=== PATIENT | male | born 1990 | race Caucasian/White ===

== ENCOUNTER 2016-08-14 14:14 | Emergency (ER) | payer OTHER ==
[~2016-08-14] VITALS: Ht 195.6 cm; Wt 10.0 kg
[2016-08-14 14:17] VITALS: Ht 195.6 cm; Wt 10.0 kg
[2016-08-14] MEDS ORDERED: KETOROLAC 30 MG INJ IM STA (14:46)
[2016-08-14] MEDS ORDERED: HYDROCODONE/APAP (5/325) TAB PO ONE (15:00)
--- NOTE | 2016-08-14 15:38 | RADRPT ---
PROCEDURE: At the Save CLINICAL INDICATION: knee pain after injury today TECHNIQUE: AP, lateral and oblique views of the left knee were obtained. COMPARISON: None FINDINGS: There is no evidence of acute fracture or dislocation. The bony mineralization is normal. No focal bony blastic or lytic lesions. Probable small left knee joint effusion. IMPRESSION: 1. No evidence acute fracture or dislocation. 2. Probable small left knee joint effusion. RPTAT:AAJJ Physician Misty Date Time Electronically viewed and signed by Lawson Sierra Physician on 08/14/2016 15:38 BM/
[2016-08-14] MEDS ORDERED: HYDR-906 PO (15:47)
[2016-08-14] MEDS ORDERED: IBUP-1542 PO (15:47)
--- NOTE | 2016-08-14 16:06 | ERD ---
ER Documentation Chief Complaint Date/Time DATE: 08/14/16 TIME: 16:00 Chief Complaint left knee pain from sports injury today HPI 26 year old male presents emergency department for left knee pain after injury today. Patient states he was playing basketball when he tripped and fell landing on his left knee. No audible pop. Patient states he had immediate burning type pain to anterior aspect of left knee. Patient now rating pain 9/ 10. Pain is nonradiating. No calf tenderness. Patient can apply full body weight to left leg however patient has difficulty ambulate. Denies numbness or tingling. No loss of sensation. No swelling. ROS All systems reviewed and are negative except as per history of present illness. Medications Home Meds Active Scripts Hydrocodone/Acetaminophen (Randlett 5-325 Tablet) 1 Each Tablet, 1 TAB PO Q6H Y for PAIN, #7 TAB Prov:YASMIN KELLY NP 08/14/16 Ibuprofen* (Motrin*) 600 Mg Tab, 600 MG PO Q6, #15 TAB Prov:YASMIN KELLY NP 08/14/16 PMhx/Soc History of Surgery: No Anesthesia Reaction: No Hx Neurological Disorder: No Hx Respiratory Disorders: No Hx Cardiac Disorders: No Hx Psychiatric Problems: No Hx Miscellaneous Medical Probl: No Hx Alcohol Use: No Hx Substance Use: No Hx Tobacco Use: No Physical Exam Vitals Vital Signs Date Time Temp Pulse Resp B/P Pulse Ox O2 Delivery O2 Flow Rate FiO2 08/14/16 14:17 98.0 99 18 134/76 97 Physical Exam Const: Alert, oriented to person, place and time Head: Atraumatic Eyes: Normal Conjunctiva ENT: Normal External Ears, Nose and Mouth. Neck: Full range of motion..~ No meningismus. Resp: Clear to auscultation bilaterally Cardio: Regular rate and rhythm, no murmurs Abd: Soft, non tender, non distended. Normal bowel sounds Skin: No petechiae or rashes Back: No midline or flank tenderness Ext: limited flexion and extension of left knee. no swelling. no laceration or erythema. Neurovascularly intact. No loss of sensation. Neur: Awake and alert Psych: Normal Mood and Affect Results 24 hrs Current Medications Medications (Trade) Dose Ordered Sig/Terese Route PRN Reason Start Time Stop Time Status Last Admin Dose Admin Ketorolac Tromethamine (Toradol) 30 mg ONCE STAT IM 08/14/16 14:46 08/14/16 14:48 DC 08/14/16 14:59 Acetaminophen/ Hydrocodone Bitart (Randlett (5/325)) 1 tab ONCE ONCE PO 08/14/16 15:00 08/14/16 15:01 DC 08/14/16 14:59 Procedures/MDM ED COURSE: The patient was stable throughout ED course. I kept the patient and/or family informed of laboratory and diagnostic imaging results throughout the ED course. Imaging Left knee x-ray Patient: ELIZABETH RAGSDALE : 1990 Age: 26 Sex: M MR #: [id number] DOS: 08/14/16 1446 Ordering MD: YASMIN KELLY NP Location: [facility] Room/Bed: PROCEDURE: At the Save CLINICAL INDICATION: knee pain after injury today TECHNIQUE: AP, lateral and oblique views of the left knee were obtained. COMPARISON: None FINDINGS: There is no evidence of acute fracture or dislocation. The bony mineralization is normal. No focal bony blastic or lytic lesions. Probable small left knee joint effusion. IMPRESSION: 1. No evidence acute fracture or dislocation. 2. Probable small left knee joint effusion. MDM: 26-year old male presents to ED with left knee pain after injury today. Patient given Toradol and Randlett while in the ED. Patient has limited mobility to left knee. Can bear weight however has difficulty ambulating due to pain. Left knee x-ray reviewed by radiologist as no evidence of acute fracture or dislocation. Probable small left knee joint effusion. Neurovascularly intact. Knee immobilizer was applied to left lower extremity while in the ED and patient remains neurovascularly intact pre-and post splint application. Crutches were provided. Low suspicion for acute dislocation, fracture, cellulitis or compartment syndrome. Patient is appropriate for outpatient management will be given prescription for ibuprofen and Randlett. Instructed patient to follow-up with PCP or web content specialist in the next 24-48 hours for reassessment and additional management. Return to ED for any high fever, chest pain, difficulty breathing, shortness breath, wheezing, vomiting, diarrhea, abdominal pain or any new or worsening symptoms. Patient verbalizes understanding. All questions answered at discharge. Departure Diagnosis: Primary Impression: Knee pain Laterality: left Chronicity: acute Qualified Code: M25.562 - Acute pain of left knee Condition: Stable Patient Instructions: Knee Sprain Referrals: [facility] YOU HAVE RECEIVED A MEDICAL SCREENING EXAM AND THE RESULTS INDICATE THAT YOU DO NOT HAVE A CONDITION THAT REQUIRES URGENT TREATMENT IN THE EMERGENCY DEPARTMENT. FURTHER EVALUATION AND TREATMENT OF YOUR CONDITION CAN WAIT UNTIL YOU ARE SEEN IN YOUR DOCTORS OFFICE WITHIN THE NEXT 1-2 DAYS. IT IS YOUR RESPONSIBILITY TO MAKE AN APPOINTMENT FOR FOLOW-UP CARE. IF YOU HAVE A PRIMARY DOCTOR --you should call your primary doctor and schedule an appointment IF YOU DO NOT HAVE A PRIMARY DOCTOR YOU CAN CALL OUR PHYSICIAN REFERRAL HOTLINE AT IF YOU CAN NOT AFFORD TO SEE A PHYSICIAN YOU CAN CHOSE FROM THE FOLLOW[facility] [address] [facility] [address] [facility] [address] [facility] [address] [facility] [address] [facility] [address] [facility]. [facility] Urgent Care 7 a.m.- 11 p.m. Every Day of the Week NO APPOINTMENT OR AUTHORIZATION NEEDED Additional Instructions: Call your primary care doctor TOMORROW for an appointment during the next 2-3 days.See the doctor sooner or return here if your condition worsens before your appointment time. Return to ED for any high fever, chest pain, difficulty breathing, shortness breath, wheezing, vomiting, diarrhea, abdominal pain or any new or worsening symptoms. YASMIN KELLY NP Aug 14, 2016 16:06
== END 2016-08-14 16:18 | disposition home or self-care (01) ==
LOC: FTE 14:14
DX: S89.92XA Unspecified injury of left lower leg, initial encounter (principal); W01.0XXA Fall on same level from slipping, tripping and stumbling without subsequent striking against object, initial encounter; Y92.89 Other specified places as the place of occurrence of the external cause
CPT/HCPCS: 29505; 73562; 96372; 99284; J1885